=== PATIENT | female | born 1975 | race Caucasian/White ===

== ENCOUNTER → 2019-02-17 | Outpatient (CLI) | payer BC ==
--- NOTE | 2019-02-17 08:56 | MM ---
Reason for exam: screening (asymptomatic). Baseline mammogram. Physical Findings: Nurse did not find any significant physical abnormalities on exam. MG 3D Screening Mammo W/Cad Bilateral CC and MLO view(s) were taken. The breast tissue is heterogeneously dense. This may lower the sensitivity of mammography. There is no discrete abnormality. These results were verbally communicated with the patient and result sheet given to the patient on 02/17/19. ASSESSMENT: Negative, BI-RAD 1 RECOMMENDATION: Routine screening mammogram of both breasts in 1 year.
== END | disposition home or self-care (01) ==
LOC: RADMAMWWP 08:01
PROVIDERS: ATTEND Family Medicine
DX: Z12.31 Encounter for screening mammogram for malignant neoplasm of breast (principal)
CPT/HCPCS: 77063; 77067

== ENCOUNTER → 2023-09-24 | Outpatient (CLI) | payer BC ==
--- NOTE | 2023-09-24 15:44 | US ---
EXAMINATION TYPE: US st tissue head/neck DATE OF EXAM: 09/24/2023 COMPARISON: NONE CLINICAL INDICATION: Female, 48 years old with history of R59.0 LOCALIZED ENLARGED LYMPH NODES; Multi ple lumps posterior to left ear x 2 months TECHNIQUE: Targeted scanning along the patient's upper left neck. FINDINGS: Scattered thickened lymph nodes at patients area of concern; neck scanned for lymphadenopa thy. Largest lymph node overall = 3.1 x 0.8 x 1.3 cm IMPRESSION: Mildly thickened lymph nodes along the patient's left lateral upper neck at the area of concern. The largest measures 3.1 x 1.3 x 0.87 m (1.3 cm short axis) which is mildly enlarged. These may be reacti ve/post inflammatory. Short interval follow-up ultrasound in 8-10 weeks to reassess. If there is prog ressive enlargement or suspicious clinical features, contrast-enhanced CT soft tissue neck can be per formed.
== END | disposition home or self-care (01) ==
LOC: RADUSWWP 15:17
PROVIDERS: ATTEND Family Medicine
DX: R59.0 Localized enlarged lymph nodes (principal)
CPT/HCPCS: 76536

== ENCOUNTER → 2023-10-20 | Outpatient (CLI) | payer BC ==
--- NOTE | 2023-10-21 08:06 | CT ---
EXAMINATION TYPE: CT soft tissue neck w con CT DLP: 373.8 mGycm, Automated exposure control for dose reduction was used. DATE OF EXAM: 10/20/2023 9:39 AM COMPARISON: Reference ultrasound exam 09/24/2023. CLINICAL INDICATION:Female, 48 years old with history of R59.0 localized enlarged lymph nodes; PHH, l eft sided lump behind ear TECHNIQUE: Standard enhanced CT of the neck. Axial sections with coronal and sagittal reformats were obtained. Contrast used:100 mL of Isovue 300 with IV Contrast, Oral contrast used: none. FINDINGS: Brain: Visualized portions are grossly unremarkable. Orbits: Unremarkable Sinuses: Grossly unremarkable. Nasal septal deviation towards the right with osseous spur in its midp ortion Spaces of the neck: Clear and symmetric. No enhancing mass identified. Musculoskeletal: No acute osseous pathology. Mild degenerative changes of the cervical spine, greates t C5-C6 where disc marginal osteophytes cause mild to moderate canal and moderate bilateral neural fo raminal stenosis. Lymph nodes: Multiple nonenlarged lymph nodes are seen along both anterior chains of the neck. No s uspicious enlarged nodes are seen. At the sites of marker on the left, the superior end of the sterno cleidomastoid is seen, no suspicious mass or adenopathy is shown. Vascular structures: Visualized major arteries are patent without evidence of aneurysm or significant stenosis. Thoracic Inlet/airway: Airway is patent. The lung apices show no acute infiltrate. Minimal emphysemat ous changes and scarring with tiny calcified granuloma in the right lung apex. There is non mass-like soft tissue in the anterior mediastinum, likely residual or reactivated thymic tissue. Soft tissues/Thyroid: Subcentimeter hypodense right thyroid nodule. Other: none. IMPRESSION No definite evidence for mass, abscess or significant abnormality.
== END | disposition home or self-care (01) ==
LOC: RADCTMAIN 09:15
PROVIDERS: ATTEND Family Medicine
DX: R59.0 Localized enlarged lymph nodes (principal)
CPT/HCPCS: 70491; Q9967

== ENCOUNTER → 2024-03-25 | Outpatient (CLI) | payer BC ==
--- NOTE | 2024-03-26 08:08 | MM ---
Reason for Exam: Screening (asymptomatic). Last mammogram was performed 5 year(s) and 1 month(s) ago. Patient History: Menarche at age 11. First Full-Term at age 28. Late child-bearing (after 28). Hysterectomy at age 40. Postmenopausal. Patient has history of breast feeding. Risk Values: Alyson 5 year model risk: 1.3%. NCI Lifetime model risk: 12.1%. Prior Study Comparison: 02/17/2019 Bilateral Screening Mammogram, [facility]. Tissue Density: The breasts are heterogeneously dense, which may obscure small masses. Findings: Analyzed By CAD. Right breast: There is no suspicious group of microcalcifications or new suspicious mass. Left breast: There is no suspicious group of microcalcifications or new suspicious mass. Overall Assessment: Negative, BI-RAD 1 Management: Screening Mammogram of both breasts in [address] [facility] will attempt to contact patient to return for supplemental views and ultrasound if indicated. Patient should continue monthly self-breast exams. A clinical breast exam by your physician is recommended on an annual basis. This exam should not preclude additional follow-up of suspicious palpable abnormalities. Note on Alyson scores and lifetime risk: 1. A Alyson score greater than 3% is considered moderate risk. If this is the case, consider specialist referral to assess eligibility for a risk reducing agent. 2. If overall lifetime risk for the development of breast cancer is 20% or higher, the patient may qualify for future screening with alternating mammogram and breast MRI. Electronically signed and approved by: Guillermo Grace DO
== END | disposition home or self-care (01) ==
LOC: RADMAMWWP 08:08
PROVIDERS: ATTEND Family Medicine
DX: Z12.31 Encounter for screening mammogram for malignant neoplasm of breast (principal); Z78.0 Asymptomatic menopausal state
CPT/HCPCS: 77063; 77067

== ENCOUNTER → 2025-05-23 | Outpatient (CLI) | payer BC ==
--- NOTE | 2025-05-23 10:28 | MM ---
Reason for Exam: Screening (asymptomatic). Last mammogram was performed 1 year(s) and 2 month(s) ago. Patient History: Menarche at age 11. First Full-Term at age 28. Late child-bearing (after 28). Hysterectomy at age 40. Postmenopausal. Patient has history of breast feeding. Patient used Hormonal Contraceptives for 10 years. Risk Values: Alyson 5 year model risk: 1.5%. NCI Lifetime model risk: 11.8%. Prior Study Comparison: 02/17/2019 Bilateral Screening Mammogram, [facility]. 03/25/2024 Bilateral MG 3D screening mammo w/cad, [facility]. Tissue Density: The breasts are heterogeneously dense, which may obscure small masses. Findings: Analyzed By CAD. Right breast: There is no suspicious group of microcalcifications or new suspicious mass. Left breast: There is no suspicious group of microcalcifications or new suspicious mass. Overall Assessment: Negative, BI-RAD 1 Management: Screening Mammogram of both breasts in [address] [facility] will attempt to contact patient to return for supplemental views and ultrasound if indicated. Patient should continue monthly self-breast exams. A clinical breast exam by your physician is recommended on an annual basis. This exam should not preclude additional follow-up of suspicious palpable abnormalities. Note on Alyson scores and lifetime risk: 1. A Alyson score greater than 3% is considered moderate risk. If this is the case, consider specialist referral to assess eligibility for a risk reducing agent. 2. If overall lifetime risk for the development of breast cancer is 20% or higher, the patient may qualify for future screening with alternating mammogram and breast MRI. [facility], , 05/23/2025 10:25 AM. Electronically signed and approved by: Guillermo Grace DO
== END | disposition home or self-care (01) ==
LOC: RADMAMWWP 09:28
PROVIDERS: ATTEND Family Medicine
DX: Z12.31 Encounter for screening mammogram for malignant neoplasm of breast (principal); R92.333 Mammographic heterogeneous density, bilateral breasts; Z78.0 Asymptomatic menopausal state; Z92.0 Personal history of contraception
CPT/HCPCS: 77063; 77067